=== PATIENT | male | born 1995 | race Caucasian/White ===

== ENCOUNTER → 2018-01-26 | Outpatient (CLI) | payer BC ==
[~2018-01-26] MED LIST: GADOBUTROL 10 ML VIAL IVP ONE; GLUCAGON HCL 0.3 MG in SYRINGE 0.3 ML IVP ONE
== END ==
LOC: FIMAGING 08:14
PROVIDERS: ATTEND Physician Assistant
DX: K50.018 Crohn's disease of small intestine with other complication (principal)
CPT/HCPCS: A9585; J1610

== ENCOUNTER 2018-08-25 05:18 | Inpatient (IN) | payer BC ==
[2018-08-25] MEDS ORDERED: ceFAZolin 2 GM/DEXTROSE 100 ML IV ONE (05:52)
[2018-08-25] MEDS ORDERED: LR 1,000 ML IV ONE (05:52)
[2018-08-25] MEDS ORDERED: LIDOCAINE 1% 2 ML INJ ID PRN (05:52)
[2018-08-25] MEDS ORDERED: DEXAMETHASONE 10 MG/ML VIAL IVP ONE (06:45)
[2018-08-25] MEDS ORDERED: MIDAZOLAM 2 MG/2 ML VIAL IVP ONE (07:00)
[2018-08-25] MEDS ORDERED: LIDO/EPI 2% **for epidural** 20 ML SDV ONE (07:02)
[2018-08-25] MEDS ORDERED: BUPIVACAINE/EPI 0.25% 30 ML SDV ONE (07:02)
[2018-08-25] MEDS ORDERED: CHLORHEXIDINE GLUC HIBICLENS 118 ML BTL TP ONE (07:02)
[2018-08-25] MEDS ORDERED: BACITRACIN ZINC 14.2 GM OINTTUBE TP ONE (07:02)
--- NOTE | 2018-08-25 07:02 | PDHPUP ---
History & Physical Update H&P update statement: This history and physical update is based on an assessment of the patient which was completed after admission or registration (within 24 hours), but prior to the surgery/procedure. H&P update: H&P reviewed & patient examined (No changes in History and physical noted. )
[2018-08-25] MEDS ORDERED: LIDO/EPI 1% **Not for Epidural 20 ML MDV ONE ×2 (07:03→09:52)
[2018-08-25] MEDS ORDERED: CHLORHEXIDINE GLUCONATE 15 ML UDL ONE ×2 (07:03→07:57)
--- NOTE | 2018-08-25 07:03 | PDANEPAE ---
SAGAR History of Present Illness Wilber KEITH Past Medical History - Cardiovascular History Hx Hypertension: No Hx Arrhythmias: No Hx Chest Pain: No Hx Coronary Artery / Peripheral Vascular Disease: No Hx CHF / Valvular Disease: No Hx Palpitations: No - Pulmonary History Hx COPD: No Hx Asthma/Reactive Airway Disease: No Hx Recent Upper Respiratory Infection: No Hx Oxygen in Use at Home: No Hx Sleep Apnea: No Sleep Apnea Screening Result - Last Documented: Negative - Neurologic History Hx Cerebrovascular Accident: No Hx Seizures: No Hx Dementia: No - Endocrine History Hx Diabetes: No - Renal History Hx Renal Disorders: No - Liver History Hx Hepatic Disorders: Yes Hepatic History Comment: hx fatty liver - Neurological & Psychiatric Hx Hx Neurological and Psychiatric Disorders: Yes Neurological / Psychiatric History Comment: depression,anxiety - Cancer History Hx Cancer: No - Congenital Disorder History Hx Congenital Disorders: No - GI History Hx Gastrointestinal Disorders: Yes Gastrointestinal History Comment: crohn's disease IBS - Other Health History Other Health History: allergic rhinitis - Chronic Pain History Chronic Pain: Yes (abd distress) - Surgical History Prior Surgeries: 2015 fx finger R hand SAGAR Review of Systems Review of Systems: - Exercise capacity METS (RN): 4 METS ANE Patient History - Allergies Allergies/Adverse Reactions: No Known Allergies Allergy (Verified 08/09/18 10:25) - Home Medications Home medications: home medication list seen and reviewed Home Medications: Adalimumab [Humira] 20 mg SQ Q14D 08/09/18 [Last Taken 07/26/18] Cetirizine [ZyrTEC 10 mg (*)] 10 mg PO DAILY 08/09/18 [Last Taken 08/25/18 05:00 ] Cholecalciferol Vit D3 [Vitamin D3 (*)] 1,000 units PO DAILY 08/09/18 [Last Taken 08/22/18] Levothyroxine [Synthroid 137 mcg (*)] 137 mcg PO DAILY06 08/09/18 [Last Taken 05:00] Vitamin B Complex [Vitamin B Complex (OTC)] 1 each PO DAILY 08/09/18 [Last Taken 08/22/18] - NPO status NPO Status: no food or drink >8 hours NPO Since - Liquids (Date): 08/24/18 NPO Since - Liquids (Time): 23:55 NPO Since - Solids (Date): 08/24/18 NPO Since - Solids (Time): 20:00 - Anes Hx Anes Hx: no prior problems - Smoking Hx Smoking Status: Never smoked - Alcohol Use Alcohol Use: None - Family Anes Hx Family Anes Hx: none Family Hx Anesthesia Complications: none ANE Labs/Vital Signs - Labs Result Diagrams: 08/25/18 06:25 - Labs - CBC WBC: labs pending - Vital Signs Blood Pressure: 134/89 Heart Rate: 87 Respiratory Rate: 16 O2 Sat (%): 95 Height: 182.88 cm Weight: 122.47 kg ANE Physical Exam - Airway Neck exam: FROM Mallampati Score: Class 2 Mouth exam: normal dental/mouth exam - Pulmonary Pulmonary: no respiratory distress - Cardiovascular Cardiovascular: regular rate and rhythym - ASA Status ASA Status: I ANE Anesthesia Plan Anesthesia Plan: general endotracheal anesthesia (NTT tube)
[2018-08-25] MEDS ORDERED: PROPOFOL/EMULSION 500 MG/50 ML BOTTLE IV ONE ×4 (07:19→13:42)
[2018-08-25] MEDS ORDERED: REMIFENTANIL HCL 1 MG VIAL ONE ×3 (07:19→11:34)
[2018-08-25] MEDS ORDERED: fentaNYL 100 MCG/2 ML INJ ONE ×2 (07:19→13:42)
[2018-08-25] MEDS ORDERED: LIDOCAINE HCL 160 MG/4 ML LTA KIT TP ONE (07:24)
[2018-08-25] MEDS ORDERED: ONDANSETRON 4 MG/2 ML VIAL ONE (07:24)
[2018-08-25] MEDS ORDERED: LIDOCAINE 2% 100 MG/5 ML SYR ONE (07:24)
[2018-08-25] MEDS ORDERED: PHENYLEPHRINE 0.5% NASAL 15 ML SPRAY ONE (07:25)
[2018-08-25] MEDS ORDERED: LABETALOL HCL 5 MG/ML 20 ML MDV ONE (08:56)
[2018-08-25] MEDS ORDERED: THROMBIN (BOVINE) 5,000 UNIT VIAL TP ONE (09:40)
[2018-08-25] MEDS ORDERED: DEXAMETHASONE 4 MG/ML VIAL ONE ×2 (15:04)
[2018-08-25] MEDS ORDERED: METOCLOPRAMIDE 10 MG/2 ML VIAL IVP PRN (15:23)
[2018-08-25] MEDS ORDERED: HYDROCODONE/APAP 5/325 TAB PO PRN (15:23)
[2018-08-25] MEDS ORDERED: PROMETHAZINE HCL 25 MG/ML INJ IVP PRN ×2 (15:23→18:07)
[2018-08-25] MEDS ORDERED: fentaNYL 100 MCG/2 ML INJ IVP PRN (15:23)
[2018-08-25] MEDS ORDERED: LABETALOL HCL 5 MG/ML 20 ML MDV IVP PRN (15:23)
[2018-08-25] MEDS ORDERED: DEXAMETHASONE 4 MG/ML VIAL IVP PRN (15:23)
[2018-08-25] MEDS ORDERED: ONDANSETRON 4 MG/2 ML VIAL IVP PRN (15:23)
[2018-08-25] MEDS ORDERED: NALOXONE HCL 0.4 MG/ML INJ IVP PRN ×2 (15:23→17:43)
[2018-08-25] MEDS ORDERED: MEPERIDINE 25 MG/0.5 ML AMP IVP PRN (15:23)
[2018-08-25] MEDS ORDERED: oxyCODONE IR 5 MG TAB PO PRN (15:23)
[2018-08-25] MEDS ORDERED: PHENYLEPHRINE HCL 100 MCG/ML SYR IVP PRN (15:23)
[2018-08-25] MEDS ORDERED: ACETAMINOPHEN 500 MG TAB PO PRN (15:23)
[2018-08-25] MEDS ORDERED: LR 500 ML IV PRN (15:23)
[2018-08-25] MEDS ORDERED: ALBUTEROL 3 ML DEYVIAL IH PRN (15:23)
[2018-08-25] MEDS ORDERED: morphINE PCA 30 MG/30 ML PCA IV PRN (15:29)
[2018-08-25] MEDS: DEXAMETHASONE 4 MG/ML VIAL IVP SCH (18:02)
[2018-08-25] MEDS: ONDANSETRON 4 MG/2 ML VIAL IVP PRN (18:15)
[2018-08-25] MEDS: LR 1,000 ML IV SCH ×2 (18:26→21:45)
[2018-08-25] MEDS ORDERED: PETROLATUM,WHITE 28.35 GM TUBE TP PRN (19:51)
--- NOTE | 2018-08-25 19:54 | POSTOPPROG ---
Post Op Note Date of Operation: 08/25/18 (lft 1 and BSSO mandible ) Surgeon: Rudy Weiss Testing Machine Operator: Sravanthi Kunz Anesthesiologist: Grzegorz Anesthesia: GET(General Endotracheal) Pre-op Diagnosis: hypoplastic Maxilla Post-op Diagnosis: same Indication: Class 3 skeletal malocclusion Procedure: [place] 1 maxillary osteotomy , BSSO mandible Findings: hypoplastic maxilla Inf/Abcess present in the surg proc area at time of surgery?: No Depth: Deep Incisional (Fascial) EBL: 50-100 Total fluids administered: 2700 LR Complications: none
--- NOTE | 2018-08-25 19:58 | SOAPPROG ---
SOAP Progress Note Assessment/Plan: POST op Day #0 S/p corrective jaw surgery ( LFT 1 / BSSO) patient with some n/v tx with zofran- resting on exam doing well. exam: some minimal bleeding intraorally and from nares ( as expected with this type of surgery) occlusion cw with surgery, repeatable, fitting into splint well. Maxilla perfusing well. Pain controlled with meds, n/v now appears to be under control Encouraged ambulation in the AM, Will see if able to void overnight and if pain is controlled and consider DC planning tomorrow AM Darren [phone] Objective: Vital Signs Temp Pulse Resp BP Pulse Ox 37.1 C 70 18 134/89 H 99 08/25/18 19:20 08/25/18 19:20 08/25/18 19:20 08/25/18 19:20 08/25/18 19:20 Laboratory Results 08/25/18 06:25 08/24/18 08/25/18 08/26/18 05:59 05:59 05:59 Intake Total 3210 Output Total 550 Balance 2660 ICD10 Worksheet Patient Problems: Problems Problem Status Onset Maxillary hypoplasia Acute - ICD10 Problem Qualifiers (1) Maxillary hypoplasia
[2018-08-25] MEDS: SODIUM CL NASAL 45 ML BTL EACHNARE PRN (21:45)
[2018-08-25] MEDS: HYDROCOD/APAP 7.5/325 IN 15ML UDCUP PO PRN (21:47)
[2018-08-26] MEDS: DEXAMETHASONE 4 MG/ML VIAL IVP SCH ×5 (00:45→23:37)
[2018-08-26] MEDS: HYDROCOD/APAP 7.5/325 IN 15ML UDCUP PO PRN ×2 (04:03→08:41)
[2018-08-26] MEDS: LEVOTHYROXINE 137 MCG TAB PO SCH (04:03)
[2018-08-26] MEDS: SODIUM CL NASAL 45 ML BTL EACHNARE PRN (04:04)
[2018-08-26] MEDS: LR 1,000 ML IV SCH ×2 (05:46→13:00)
--- NOTE | 2018-08-26 08:53 | PDMN ---
Medical Necessity Medical necessity: Pt meets inpt criteria per MD order and Head [facility] Neck Surgery [facility], [place] Maxillary Osteotomy and BSSO Mandible, Medicare inpt only list. 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
--- NOTE | 2018-08-26 08:55 | SOAPPROG ---
SOAP Progress Note Assessment/Plan: POST op Day #1 S/P corrective jaw surgery. Patient had a great deal of pain last PM. States a 03/16 This AM . Only Taking Lortab Elixer, not using TIRE TRUCKER. N/ V has stopped, having difficulty taking in PO fluids as his jaw hurts to open and swallow. He is ambulating and using the restroom. Offered the TIRE TRUCKER, he will see if he needs it with the Lortab elixer today. Exam: occlusion cw post op, closing into the splint easily, maxilla perfusing well, appropriate swelling. Midlines on and upon removing elastics, bite looks to be cw with surgical planning. a/p 1) Pain poorly controlled- will admin scheduled lortab and see if improves 2) PO intake poor- discussed using syringe or straw to see if can increase intake. 3) removed some of the heavier guiding elastics, will see if he can open better for intake 4) if he does start to feel better , nurse will call me for discharge planning. Need to make sure he can take PO and pain is controlled first. Will see him this evening for follow up otherwise. [place] office [phone] 08/26/18 08:49 Objective: Vital Signs Temp Pulse Resp BP Pulse Ox 36.9 C 92 20 110/72 94 08/26/18 07:27 08/26/18 07:27 08/26/18 07:27 08/26/18 07:27 08/26/18 07:27 Laboratory Results 08/25/18 06:25 08/25/18 08/26/18 08/27/18 05:59 05:59 05:59 Intake Total 3660 Output Total 1550 Balance 2110 ICD10 Worksheet Patient Problems: Problems Problem Status Onset Maxillary hypoplasia Acute - ICD10 Problem Qualifiers (1) Maxillary hypoplasia
[2018-08-26] MEDS ORDERED: NALOXONE HCL 0.4 MG/ML INJ IVP PRN (09:27)
[2018-08-26] MEDS ORDERED: morphINE PCA 30 MG/30 ML PCA IV PRN (09:27)
[2018-08-26] MEDS: CETIRIZINE 10 MG TAB PO SCH (09:39)
--- NOTE | 2018-08-26 11:45 | ASMTCMCOM ---
CM Note CM Note Notes: 08/26/2018 Case Management Note Pt admitted for corrective jaw surgery. Pt has strong family support. There are no therapy evals ordered today. Attempted to meet w/pt but pt was sound asleep. Case Management d/c poc: anticipating independent with family support with follow up as directed. Case Management available if needs change. Date Signed: 08/26/2018 11:44 AM Electronically Signed By:Vika Saravia RN
[2018-08-26] MEDS: ONDANSETRON 4 MG/2 ML VIAL IVP PRN (14:18)
[2018-08-26] MEDS: FAMOTIDINE 20 MG/NACL 50 ML IV SCH (15:12)
--- NOTE | 2018-08-26 18:55 | SOAPPROG ---
SOAP Progress Note Assessment/Plan: POST op Day #1 S/P corrective jaw surgery. Patient not taking ANY fluids PO today. Refuses to try " I coughed and it all hurt so I am not doing that again " says when he swallows or opens his jaw his pain in the mandible is significant. He points to the angles bilaterally. Says his pain is better controlled with the freight loader however not taking fluids or eating at all. Exam: removed elastics. Moving into splint with difficulty, upon swallowing, not noticing any movement or change in the bony segments. Maxilla perfusing , palate with some swelling however appears to be consistent with surgery. Incision lines clean and wnl A/P Post op day #1 patient with significant pain and unable to take anything per oral 1) Placed in heavy guiding elastics to stabilize the jaw- Hoping will allow the jaw to rest a bit and make swallowing less uncomfortable. 2) Emphasized need to take PO. Walked him through how to swallow with jaws together. He and his dad said they would try every half hour. It seems the swelling of the palate may be some of his difficulty- Increased his steroid dosage to help decrease swelling and see if any improvement. 3) will round in the AM tomorrow. Not likely for him to go home tomorrow. [facility] [phone] 08/26/18 08:49 08/26/18 18:46 Objective: Vital Signs Temp Pulse Resp BP Pulse Ox 36.5 C 79 16 140/86 H 97 08/26/18 17:11 08/26/18 17:11 08/26/18 17:11 08/26/18 17:11 08/26/18 17:11 Laboratory Results 08/25/18 06:25 08/25/18 08/26/18 08/27/18 05:59 05:59 05:59 Intake Total 3660 1730 Output Total 1550 Balance 2110 1730 ICD10 Worksheet Patient Problems: Problems Problem Status Onset Maxillary hypoplasia Acute - ICD10 Problem Qualifiers (1) Maxillary hypoplasia
[2018-08-27] MEDS: DEXAMETHASONE 4 MG/ML VIAL IVP SCH ×3 (05:36→17:12)
[2018-08-27] MEDS: LR 1,000 ML IV SCH ×3 (05:38→21:33)
[2018-08-27] MEDS: LEVOTHYROXINE 137 MCG TAB PO SCH ×2 (05:51→08:09)
[2018-08-27] MEDS: FAMOTIDINE 20 MG/NACL 50 ML IV SCH (08:02)
[2018-08-27] MEDS: CETIRIZINE 10 MG TAB PO SCH (08:02)
[2018-08-27] MEDS: HYDROCOD/APAP 7.5/325 IN 15ML UDCUP PO PRN ×4 (08:02→21:32)
[2018-08-27] MEDS: ONDANSETRON 4 MG/2 ML VIAL IVP PRN (21:32)
[2018-08-28] MEDS: DEXAMETHASONE 4 MG/ML VIAL IVP SCH ×2 (00:45→06:08)
[2018-08-28] MEDS: LR 1,000 ML IV SCH (06:08)
[2018-08-28] MEDS: LEVOTHYROXINE 137 MCG TAB PO SCH (06:08)
[2018-08-28] MEDS: ONDANSETRON 4 MG/2 ML VIAL IVP PRN (06:23)
[2018-08-28 08:01] VITALS: BP 142/87
[2018-08-28] MEDS: CETIRIZINE 10 MG TAB PO SCH (08:27)
[2018-08-28] MEDS: FAMOTIDINE 20 MG/NACL 50 ML IV SCH (08:27)
--- NOTE | 2018-08-28 10:17 | SOAPPROG ---
SOAP Progress Note Assessment/Plan: POST op Day #3 s/p corrective jaw surgery doing much better this AM. Taking in fluids regularly pain controlled with oral pain meds, ambulating and voiding well. Exam: appropriate swelling, midlines on, fitting in to splint well, occlusion cw with surgery. a/p Doing well- ok to discharge home 1) has prescriptions at home for amoxicillin, lortab and peridex rinse. 2) has appointment with my office ) on Sep 01 2018 at 10AM DC to home 08/28/18 10:14 Objective: Vital Signs Temp Pulse Resp BP Pulse Ox 36.4 C 81 16 142/87 H 95 08/28/18 07:58 08/28/18 07:58 08/28/18 07:58 08/28/18 07:58 08/28/18 07:58 Laboratory Results 08/25/18 06:25 08/27/18 08/28/18 08/29/18 05:59 05:59 05:59 Intake Total 1930 750 Balance 193 750 ICD10 Worksheet Patient Problems: Problems Problem Status Onset Maxillary hypoplasia Acute - ICD10 Problem Qualifiers (1) Maxillary hypoplasia
--- NOTE | 2018-08-28 12:34 | ASDISCHSUM ---
Discharge Information Plan Status:Home with No Needs Medically Cleared to Leave:08/27/2018 Discharge Date:08/27/2018 CM D/C Disposition:Home, Routine, Self-Care ADT D/C Disposition: Projected Discharge Date:08/27/2018 Transportation at D/C:Family Discharge Delay Reason: Follow-Up Date:08/27/2018 Discharge Slot: Final Diagnosis:maxillary hypoplasia Placement Information Patient Contact Information Contact Name:JONATHAN Relationship:Father Address:[address] Home Phone: City:[place] Alternate Phone: State/Zip Code:[place] [address] Email: Financial Information Financial Class:BCOP Primary Plan Desc: OUT OF STATE PPO Primary Plan Number:[id number] Secondary Plan Desc: Secondary Plan Number: Assessment Information LACE LACE Length of stay for Answers: 3 days current admission Acuity / Level of Answers: Yes Care: Did the patient have an inpatient admission? Comorbidities - select Answers: Opioid dependence all that apply / Chronic pain Other Notes: Crohn's disease, hypothyroidism # of Emergency department Answers: 0 visits in the last 6 months Social determinants Answers: Mental health diagnosis (anxiety, depression, pers onality disorders, etc.) Score: 14 Date Signed: 08/28/2018 10:50 AM Electronically Signed By:Albania Cantrell [facility] CM Progress Note CM Note CM Note Notes: 08/26/2018 Case Management Note Pt admitted for corrective jaw surgery. Pt has strong family support. There are no therapy evals ordered today. Attempted to meet w/pt but pt was sound asleep. Case Management d/c poc: anticipating independent with family support with follow up as directed. Case Management available if needs change. Date Signed: 08/26/2018 11:44 AM Electronically Signed By:Vika Saravia RN Case Management Discharge Plan Note Case Management Discharge Discharge Order Complete? Answers: Yes Patient to Obtain Answers: via Family Medications Transportation Arranged Answers: Family/Friends Family Notified Answers: Yes Notes: father in the room Discharge Comments Notes: Spoke with pt in the room. Pt's father is in town to be supportive post discharge and will be staying with the pt. Pt comfortable with independent discharge plan. No CM needs noted at this time. Date Signed: 08/28/2018 10:49 AM Electronically Signed By:Albania Cantrell Intervention Information Intervention Type:*Incorrect Registration Date of Service:08/26/2018 08:43 AM Patient Type:Observation Staff Member:GERARD Avilez, Karolina Hours: Discipline: Severity: Comment:
--- NOTE | 2018-08-28 12:38 | ASMTDCNOTE ---
Case Management Discharge Discharge Order Complete? Answers: Yes Patient to Obtain Answers: via Family Medications Transportation Arranged Answers: Family/Friends Family Notified Answers: Yes Notes: father in the room Discharge Comments Notes: Spoke with pt in the room. Pt's father is in town to be supportive post discharge and will be staying with the pt. Pt comfortable with independent discharge plan. No CM needs noted at this time. Date Signed: 08/28/2018 10:49 AM Electronically Signed By:Albania Cantrell
--- NOTE | 2018-08-28 12:38 | ASMTLACE ---
JUAN Length of stay for Answers: 3 days current admission Acuity / Level of Answers: Yes Care: Did the patient have an inpatient admission? Comorbidities - select Answers: Opioid dependence all that apply / Chronic pain Other Notes: Crohn's disease, hypothyroidism # of Emergency department Answers: 0 visits in the last 6 months Social determinants Answers: Mental health diagnosis (anxiety, depression, pers onality disorders, etc.) Score: 14 Date Signed: 08/28/2018 10:50 AM Electronically Signed By:Albania Cantrell
--- NOTE | 2018-08-31 14:15 | POSTANESTH ---
Post Anesthetic Evaluation Cardiovascular Status: Normal, Stable Respiratory Status: Normal, Stable Level of Consciousness/Mental Status: Can Participate in Eval Pain Control: Adequate, Prn Tx Ordered Nausea/Vomiting Control: Adequate, Prn Tx Ordered Complications Possibly Related to Anesthesia: None Noted
== END 2018-08-28 11:00 | disposition home or self-care (01) | DRG 131 ==
LOC: F3E 05:18 → OBSVTOIN 15:59 → F3E 17:55
PROVIDERS: ADMIT Dentist Oral and Maxillofacial Surgery; ATTEND Dentist Oral and Maxillofacial Surgery
DX: M26.02 Maxillary hypoplasia (principal); K50.90 Crohn's disease, unspecified, without complications; E03.9 Hypothyroidism, unspecified
CPT/HCPCS: C1713; J0690; J1100; J2001; J2250; J2270; J2405; J2704; J3010